=== PATIENT | female | born 2000 | race Caucasian/White ===

== ENCOUNTER 2024-02-05 17:12 | Emergency (ER) | payer SELFPAY ==
[2024-02-05 17:25] VITALS: BP 119/75; PULSE 71; RESP 14; TEMP 36.7; O2SAT 98
[2024-02-05 17:42] LABS: Charge for UA Resulting for Rev
[2024-02-05 17:44] LABS: Bilirubin Urine Negative (Negative); Blood Urine 1+ (Negative); Glucose Urine UA Negative (Normal); Ketones Urine Negative (Negative); Leukocyte Esterase Urine 2+ (Negative); Nitrate Urine Negative (Negative); Protein Urine 2+ (Negative); Specific Gravity, Urine 1.024 (1.005-1.030); Urine Appearance Cloudy (CLEAR); Urine Color Yellow (Yellow)
--- NOTE | 2024-02-05 17:51 | W.ED.FEMALGU ---
HPI - Female Genitourinary General: Chief complaint: Urogenital-Female Stated complaint: UTI, nausea, hurts with urinates Time Seen by Provider: 02/05/24 17:41 Source: patient Mode of arrival: ambulatory Limitations: no limitations History of Present Illness: Patient is a 23-year-old female presenting to the emergency department complaining of 3 weeks of urinary symptoms. Reports history of UTI stating this feels the same. Her symptoms are some burning with urination, urinary incontinence, suprapubic abdominal pain, and odor. However she is not having any vaginal symptoms, no discharge, bleeding, or possibility of . She does state that she is having some dyspareunia however. She states taking numerous [id number] remedies at [facility], but believes these have made her symptoms worse. She is denying any fever, nausea or vomiting, blood in her urine, or other symptoms at this time. She does report a personal history of miscarriage as well as ovarian cysts. MD elicited complaint: dysuria, UTI , pelvic pain and urinary incontinence Onset (ago): week(s) (3) Severity: moderate Vaginal discharge: none Vaginal bleeding: none Associated symptoms: Reports abdominal pain and nausea; Deny headache(s) or vaginal discharge Treatment prior to arrival: OTC urinary analgesics and OTC vaginal cream Sexual activity: Yes Related Data Previous Rx's Medication Instructions Recorded ciprofloxacin HCl 500 mg tablet 500 mg PO BID 10 days #20 tabs 02/05/24 (Cipro) phenazopyridine 100 mg tablet 100 mg PO Q8H PRN pain 6 doses #6 02/05/24 (Pyridium) tabs Allergies Allergy/AdvReac Type Severity Reaction Status Date / Time amoxicillin Allergy ALGY-Rash Verified 02/05/24 17:29 cefuroxime [From Ceftin] Allergy ALGY-Rash Verified 02/05/24 17:29 Penicillins Allergy ALGY-Rash Verified 02/05/24 17:29 Review of Systems General: Reports: 10 or more systems reviewed and unremarkable except in HPI and below Const: Denies: fever(s), chills, change in appetite, change in weight or diaphoresis ENMT: Denies: throat pain or hoarseness Card: Denies: chest pain, palpitations or lightheadedness Resp: Denies: dyspnea, productive cough or wheezing GI: Reports: abdominal pain and nausea; Denies: vomiting, diarrhea, constipation, bloating, change in stool character or hematochezia : Reports: dysuria, urinary urgency, urinary incontinence, vaginal odor and pelvic pain; Denies: flank pain, difficulty voiding, hematuria, vaginal bleeding or vaginal discharge Musc: Denies: neck pain or back pain Skin/Breast: Denies: rash or new lesions Neuro: Denies: headache(s) or dizziness Physical Exam Const: COMMON NORMALS: no acute distress, average body habitus, patient oriented x3, no limitations, healthy appearing, alert and well nourished GENERAL APPEARANCE: cooperative and comfortable ORIENTATION/CONSCIOUSNESS: Yes awake HENMT: COMMON NORMALS: normocephalic, atraumatic, hearing grossly normal bilaterally, external ears normal, Normal external nose present, Normal nasal mucous membranes and turbinates present and moist oral mucous membranes HEAD & SCALP: normocephalic and atraumatic NOSE: Normal external nose present and Normal nasal mucous membranes and turbinates present EXTERNAL EAR: Yes external ears normal Eye: COMMON NORMALS: Equal, round and reactive pupils present, EOMs intact bilaterally, conjunctivae normal and normal visual hanna by confrontation CONJUNCTIVA: Yes conjunctivae normal PUPIL: Yes Equal, round and reactive pupils present Neck/C-Spine: COMMON NORMALS: full ROM, supple, no meningeal signs and no JVD Resp: COMMON NORMALS: normal respiratory effort, No retractions, No use of accessory muscles and clear to auscultation bilaterally AUSCULTATION: clear to auscultation bilaterally, no crackles, no rales, no rhonchi and no wheezes Cardio: COMMON NORMALS: no JVD, regular rate, regular rhythm, S1 normal heart sound present, S2 normal heart sound present, No gallops present (Cardio), No clicks present (Cardio), No murmurs present (Cardio), No rub (Cardio) and Peripheral pulses 2+ throughout RATE: regular rate RHYTHM: regular rhythm HEART SOUNDS: S1 normal heart sound present and S2 normal heart sound present PERIPHERAL PULSES: Peripheral pulses 2+ throughout GI: COMMON NORMALS: Normal to inspection, nondistended, normoactive bowel sounds present, Soft to palpation, No hepatosplenomegaly present and no masses AUSCULTATION: Yes normoactive bowel sounds PALPATION: Yes Soft to palpation, Yes Tenderness to palpation present (GI) (Mild suprapubic abdominal tenderness to palpation), No Guarding due to palpation present (GI), No Rigid due to palpation and Yes No hepatosplenomegaly present RECTAL EXAM: deferred : COMMON NORMALS: Yes no CVA tenderness BLADDER/KIDNEY EXAM: Yes no CVA tenderness Back/Pelvis: COMMON NORMALS: no CVA tenderness Extremity: COMMON NORMALS: normal to inspection and full ROM Neuro: COMMON NORMALS: patient oriented x3, moves all extremities, no focal motor deficits and no sensory deficits noted SENSORIUM/ORIENTATION: Yes alert MENINGEAL SIGNS: Yes no meningeal signs Psych: COMMON NORMALS: mental status grossly normal, cooperative and speech normal SPEECH: Yes normal speech Skin: COMMON NORMALS: no rashes or lesions noted GENERAL SKIN EXAM: no rashes or lesions noted Course Vital Signs: Vital signs: Vital Signs Temperature 98.1 F 02/05/24 17:25 Pulse Rate 71 02/05/24 17:25 Respiratory Rate 14 02/05/24 17:25 Blood Pressure 119/75 02/05/24 17:25 Pulse Oximetry 98 02/05/24 17:25 Oxygen Delivery Me thod Room Air 02/05/24 17:25 MDM - Female Medical Decision Making Patient presented with a few weeks of urinary symptoms, comparison to history of urinary tract infection. Vitals normal on arrival, afebrile. Physical examination found her to be slightly tender to palpation in the suprapubic region. Urine negative. Blood work normal. Urinalysis did show evidence of urinary tract infection we will treat accordingly. Due to the amount of white blood cells, we will cover for potential ascending infection with ciprofloxacin. Will also prescribe Pyridium for relief. Encouraging plenty fluids and return precautions given. Lab Data 02/05/24 17:55 02/05/24 17:55 Laboratory Results WBC 7.50 10^3/uL (3.29-11.43) 02/05/24 17:55 RBC 4.63 10^6/uL (3.85-5.65) 02/05/24 17:55 Hgb 14.00 g/dL (11.27-16.99) 02/05/24 17:55 Hct 41.6 % (36-47) 02/05/24 17:55 MCV 89.8 fl (85-98) 02/05/24 17:55 MCH 30.2 pg (27-33) 02/05/24 17:55 MCHC 33.7 g/dL (30-55) 02/05/24 17:55 RDW 13.1 % (12.1-15.1) 02/05/24 17:55 Plt Count 298 10^3/cmm (157-399) 02/05/24 17:55 MPV 9.4 fL (7.4-10.4) 02/05/24 17:55 Neut % (Auto) 51.8 % 02/05/24 17:55 Lymph % (Auto) 31.1 % 02/05/24 17:55 [place] % (Auto) 12.3 % 02/05/24 17:55 Eos % (Auto) 3.5 % 02/05/24 17:55 Baso % (Auto) 0.9 % 02/05/24 17:55 Neut # (Auto) 3.89 10^3/uL (1.8-7.7) 02/05/24 17:55 Lymph # (Auto) 2.3 10^3/uL (0.8-4.8) 02/05/24 17:55 [place] # (Auto) 0.9 10^3/uL (0.2-0.9) 02/05/24 17:55 Eos # (Auto) 0.3 10^3/uL (0.0-0.8) 02/05/24 17:55 Baso # (Auto) 0.1 10^3/uL (0.0-0.1) 02/05/24 17:55 Nucleated RBC % (auto) 0 % 02/05/24 17:55 Nucleated RBCs # 0.0 /100WBC 02/05/24 17:55 Sodium 138 mmol/L (136-145) 02/05/24 17:55 Potassium 3.8 mmol/L (3.5-5.1) 02/05/24 17:55 Chloride 102 mmol/L (98-107) 02/05/24 17:55 Carbon Dioxide 24 mmol/L (22-29) 02/05/24 17:55 Anion Gap 15.8 (5-19) 02/05/24 17:55 BUN 22 mg/dL (6-20) H 02/05/24 17:55 Creatinine 0.7 mg/dL (0.5-0.9) 02/05/24 17:55 GFR Calculation 102.8 mL/min (90-130) 02/05/24 17:55 Glucose 79 mg/dL (65-115) 02/05/24 17:55 Calculated Osmolality 288 mOsm/kg (285-295) 02/05/24 17:55 Calcium 9.8 mg/dL (8.5-10.5) 02/05/24 17:55 Total Bilirubin 0.3 mg/dL (0.15-1.2) 02/05/24 17:55 AST 14 U/L (0-32) 02/05/24 17:55 ALT 14 U/L (0-33) 02/05/24 17:55 Alkaline Phosphatase 52 U/L (35-105) 02/05/24 17:55 Total Protein 7.8 g/dL (6.6-8.7) 02/05/24 17:55 Albumin 5.0 g/dL (3.5-5.2) 02/05/24 17:55 Globulin 2.8 g/dL (1.3-4.6) 02/05/24 17:55 Lipase 24 U/L (13-60) 02/05/24 17:55 HCG, Qual Negative (Negative) 02/05/24 17:32 Urine Color Yellow (Yellow) 02/05/24 17:32 Urine Appearance Cloudy (CLEAR) A 02/05/24 17:32 Urine pH 6.0 (5-7) 02/05/24 17:32 Ur Specific [place] 1.024 (1.005-1.030) 02/05/24 17:32 Urine Protein 2+ (Negative) A 02/05/24 17:32 Urine Glucose (UA) Negative (Normal) 02/05/24 17:32 Urine Ketones Negative (Negative) 02/05/24 17:32 Urine Blood 1+ (Negative) A 02/05/24 17:32 Urine Nitrate Negative (Negative) 02/05/24 17:32 Urine Bilirubin Negative (Negative) 02/05/24 17:32 Urine Urobilinogen 1.0 mg/dL (Negative) 02/05/24 17:32 Ur Leukocyte Esterase 2+ (Negative) A 02/05/24 17:32 Urine RBC 10-15 /hpf (0-2) H 02/05/24 17:32 Urine WBC 55-80 /hpf (0-5) H 02/05/24 17:32 Ur Squamous Epith Cells 10-15 /hpf (0-5) H 02/05/24 17:32 Amorphous Sediment Not Reportable 02/05/24 17:32 Urine Bacteria Trace /hpf (NONE) 02/05/24 17:32 No radiology studies performed this visit Discharge Plan Discharge Patient Disposition: Home Clinical Impression: Urinary tract infection Qualifiers: Urinary tract infection type: site unspecified Hematuria presence: without hematuria Qualified Code(s): N39.0 - Urinary tract infection, site not specified Condition: Stable Prescriptions: New Cipro 500 mg tablet 500 mg PO BID 10 Days Qty: 20 0RF Pyridium 100 mg tablet 100 mg PO Q8H PRN (Reason: pain) Qty: 6 0RF Discharge Orders: Discharge ED (Routine); Ordered 02/05/24 Ordered By: Boris Crystal Discharge Diet: As Directed Discharge Activity: Increase activity as tolerated Patient Instructions: Urinary Tract Infection in Women (ED) Activity Restrictions/Additional Instructions: Take antibiotics as prescribed. Pyridium for relief. Drink plenty of fluids. Please follow-up with primary care provider as needed and return with any new or worsening. Coding Level of Care Code ED Remote Sensing Program Manager for Yee Morgan
[2024-02-05 17:57] LABS: Bacteria Urine TRACE /hpf; WBC Urine 55-80 /hpf (0-5)
[2024-02-05 17:59] LABS: HCG Qualitative Urine. Negative (Negative)
[2024-02-05 18:04] LABS: Basophils # 0.1 10^3/uL (0.0-0.1); Basophils % 0.9 %; Eosinophils # 0.3 10^3/uL (0.0-0.8); Eosinophils % 3.5 %; Hematocrit 41.6 % (36-47); Lymphocytes # 2.3 10^3/uL (0.8-4.8); Lymphocytes % 31.1 %; Mean Corpuscular HGB Conc 33.7 g/dL (30-55); Mean Corpuscular Hemoglobin 30.2 pg (27-33); Mean Corpuscular Volume 89.8 fl (85-98); Mean Platelet Volume 9.4 fL (7.4-10.4); Monocytes # 0.9 10^3/uL (0.2-0.9); Monocytes % 12.3 %; Neutrophils # 3.89 10^3/uL (1.8-7.7); Neutrophils % 51.8 %; Nucleated Red Blood Cells % 0 %; Platelet Count 298 10^3/cmm (157-399); Red Blood Count 4.63 10^6/uL (3.85-5.65); Red Cell Distribution Width 13.1 % (12.1-15.1)
[2024-02-05 18:17] LABS: Alanine Aminotransferase 14 U/L (0-33); Alkaline Phosphatase 52 U/L (35-105); Anion Gap 15.8 (5-19); Aspartate Amino Transferase 14 U/L (0-32); Blood Urea Nitrogen 22 mg/dL (6-20); Calcium 9.8 mg/dL (8.5-10.5); Carbon Dioxide 24 mmol/L (22-29); Chloride 102 mmol/L (98-107); Creatinine Clr Calc Pharmacy 115.6007; Globulin 2.8 g/dL (1.3-4.6); Glomerular Filtration Rate 102.8 mL/min (90-130); Glucose 79 mg/dL (65-115); Lipase 24 U/L (13-60); Osmolality Calculated 288 mOsm/kg (285-295); Potassium 3.8 mmol/L (3.5-5.1); Sodium 138 mmol/L (136-145); Total Bilirubin 0.3 mg/dL (0.15-1.2); Total Protein 7.8 g/dL (6.6-8.7)
[2024-02-05] MEDS: ciprofloxacin 500 mg Tablet PO (18:24)
[2024-02-05] MEDS: phenazopyridine 100 mg Tablet PO (18:24)
== END 2024-02-05 18:33 | disposition home or self-care (01) ==
PROVIDERS: Emergency Medicine; Emergency Provider Physician Assistant
DX: N39.0 Urinary tract infection, site not specified (principal)
CPT/HCPCS: 80053; 81003; 81015; 81025; 83690; 85025; 99283